=== PATIENT | female | born 1975 | race Two or more races ===

== ENCOUNTER 2017-08-12 14:17 | Outpatient (CLI) | payer OTHER ==
[~2017-08-12 14:17] MED LIST: MACROBID 100 M100 MG PO; TRAMADOL HCL-AP1 TAB PO
== END 2017-08-12 14:28 | disposition home or self-care (01) ==
LOC: NUCLEAR 14:17
DX: I73.9 Peripheral vascular disease, unspecified (principal); I87.2 Venous insufficiency (chronic) (peripheral)